=== PATIENT | male | born 1985 | race Caucasian/White ===

== ENCOUNTER 2020-07-01 15:54 | Outpatient (CLI) | payer OTHER, SELFPAY ==
[2020-07-01 16:44] LABS: SARS-CoV-2 Ag Negative (Negative)
[2020-07-02 22:51] LABS: SARS-CoV-2 RNA PCR Negative
== END 2020-07-01 15:55 | disposition home or self-care (01) ==
LOC: CHSLAB 15:58
PROVIDERS: PCP Internal Medicine; Visit Provider Internal Medicine
DX: R50.9 Fever, unspecified (principal); R10.9 Unspecified abdominal pain; Z20.822 Contact with and (suspected) exposure to COVID-19
CPT/HCPCS: 87426; C9803; U0003; U0005

== ENCOUNTER 2021-05-03 15:39 | Outpatient (CLI) | payer OTHER, SELFPAY ==
--- NOTE | ~2021-05-03 | XR_ITS ---
EXAMINATION: XR chest 2V DATE: 05/03/2021 16:29 INDICATION: COVID positive with shortness of breath and cough TECHNIQUE: PA and lateral views of the chest were obtained. COMPARISON: Chest radiograph dated 04/20/2015 FINDINGS: The lungs remain clear with no focal airspace opacities, pulmonary edema, pleural effusion or pneumot horax. The cardiomediastinal silhouette is normal. Mild thoracic spondylosis. IMPRESSION: 1. No acute cardiopulmonary disease. Reviewed, dictated and finalized at location A. 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
[2021-05-03 16:50] LABS: Basophils Absolute Auto 0.01 K/mm3 (0.00-0.10); Basophils Percent Auto 0.2 % (0.0-1.0); Hematocrit 51.1 % (40.0-54.0); Hemoglobin 16.7 g/dL (14.0-18.0); Immature Granulocyte Absolute 0.02 K/mm3 (0.00-0.00); Immature Granulocyte Percent A 0.4 % (0.0-0.0); Immature Platelet Fraction Pct 4.1 % (1.0-7.0); Lymphocytes Absolute Auto 1.13 K/mm3 (1.10-4.50); Lymphocytes Percent Auto 24.2 % (18.0-42.0); Mean Corpuscular HGB Conc 32.7 g/dL (32.0-36.0); Mean Corpuscular Hemoglobin 28.6 pg (27.0-31.0); Mean Corpuscular Volume 87.5 fL (78.0-102.0); Mean Platelet Volume 10.8 fl (8.7-11.0); Monocytes Absolute Auto 0.33 K/mm3 (0.10-0.90); Monocytes Percent Auto 7.1 % (2.0-11.0); Neutrophils Absolute Auto 3.2 K/mm3 (1.7-7.2); Neutrophils Percent Auto 68.1 % (50.0-70.0); Platelet Count Result 108 K/mm3 (150-420); Red Blood Count 5.84 M/mm3 (4.70-6.10); Red Cell Distribution Width 11.7 % (11.6-14.4); White Blood Count 4.7 K/mm3 (4.8-10.8)
[2021-05-03 17:00] LABS: Influenza Control Valid (Valid)
[2021-05-03 17:06] LABS: Alanine Aminotransferase 44 U/L (16-63); Albumin Level 3.8 g/dL (3.4-5.0); Alkaline Phosphatase 71 U/L (46-116); Anion Gap 10 mmol/L (8-16); Aspartate Amino Transferase 29 U/L (15-37); Bilirubin,Total 0.4 mg/dL (0.00-1.00); Blood Urea Nitrogen 12 mg/dL (7-18); Calcium 8.4 mg/dL (8.5-10.1); Carbon Dioxide 30 mmol/L (21-32); Chloride 103 mmol/L (98-108); Estimated Glomerular Filt Rate > 60; Glucose 94 mg/dL (70-99); Osmolality Calculated 295 mOsm/kg (285-295); Potassium 4.2 mmol/L (3.5-5.1); Sodium 143 mmol/L (136-145); Total Protein 7.4 g/dL (6.4-8.2)
[2021-05-06 13:36] LABS: Vitamin D 25 Hydroxy 29 ng/mL (30-100)
== END 2021-05-03 15:40 | disposition home or self-care (01) ==
LOC: CHSLAB 15:41
PROVIDERS: PCP Internal Medicine; Visit Provider Nurse Practitioner Family
DX: U07.1 COVID-19 (principal); R50.9 Fever, unspecified; E83.51 Hypocalcemia
CPT/HCPCS: 71046; 80053; 82306; 85025; 85055; 87804

== ENCOUNTER 2021-05-12 18:34 | Outpatient (CLI) | payer OTHER, SELFPAY ==
[2021-05-12 20:32] LABS: SARS-CoV-2 Ag Negative (Negative)
== END 2021-05-12 18:35 | disposition home or self-care (01) ==
LOC: CHSLAB 18:36
PROVIDERS: PCP Internal Medicine; Visit Provider Internal Medicine
DX: Z20.822 Contact with and (suspected) exposure to COVID-19 (principal)
CPT/HCPCS: 87426; C9803

== ENCOUNTER 2024-03-18 09:40 | Outpatient (CLI) | payer OTHER, SELFPAY ==
--- NOTE | ~2024-03-18 | XR_ITS ---
XR_CERV2-3V_CR Ordering provider: Aashish Mccoy MD History: . NECK PAIN W/RT BASE OF SKULL BUMP,STIFFNESS,ANTONIO ARM NUMBNESS . Comparison: None. FINDINGS: VERTEBRAL BODIES: Normal height and alignment. No visible fracture or subluxation. The dens is intact . DISK SPACES: Well maintained. PARASPINOUS SOFT TISSUES: No prevertebral soft tissue swelling. IMPRESSION: No acute osseous abnormality cervical spine. Reviewed, dictated and finalized at location A. FIC SUPERINTENDENT
--- NOTE | ~2024-03-18 | XR_ITS ---
XR knee LT 3V Ordering provider: Aashish Mccoy MD History: . GENERAL LT KNEE PAIN CHRONIC-WORSING . Comparison: None. FINDINGS: BONES: No acute fracture or dislocation. JOINT SPACES: Normal. SOFT TISSUES: Normal. IMPRESSION: No acute osseous abnormality left knee. Reviewed, dictated and finalized at location A. INCE ARCHIVIST
[2024-03-18 10:03] LABS: Hematocrit 41.3 % (40.0-54.0); Hemoglobin 14.7 g/dL (14.0-18.0); Mean Corpuscular HGB Conc 35.6 g/dL (32-36); Mean Corpuscular Hemoglobin 29.3 pg (27.0-31.0); Mean Corpuscular Volume 82.4 fL (78.0-102.0); Mean Platelet Volume 9.4 fl (8.7-11.0); Platelet Count Result 210 K/mm3 (150-420); Red Blood Count 5.01 M/mm3 (4.70-6.10); Red Cell Distribution Width 11.6 % (11.6-14.4); White Blood Count 5.7 K/mm3 (4.8-10.8)
[2024-03-18 10:13] LABS: Add Urine Microscopic? NO; Appearance Urine Clear (Clear); Bilirubin Urine Negative (Negative); Blood Urine Negative (Negative); Color Urine Yellow (Yellow); Glucose Urine UA Negative (Negative); Ketones Urine Negative (Negative); Leukocyte Esterase Ur Negative (Negative); Nitrate Urine Negative (Negative); Protein Urine Negative (Negative)
[2024-03-18 10:21] LABS: Band Neutrophils Percent 0 % (0-6); Eosinophils Absolute Manual 1.02 K/mm3 (0.02-0.50); Eosinophils Percent Manual 18 % (1-6); Lymphocytes Absolute Manual 1.42 K/mm3 (1.1-4.5); Lymphocytes Percent Manual 25 % (18-44); Monocytes Absolute Manual 0.39 K/mm3 (0.1-0.90); Monocytes Percent Manual 7 % (3-9); Neutrophils Absolute Manual 2.85 K/mm3 (1.3-6.7); Neutrophils Percent Manual 50 % (46-73); Platelet Estimate Adequate (Adequate); Total Cells Counted 100
[2024-03-18 11:23] LABS: Alanine Aminotransferase 38 U/L (16-63); Albumin Level 3.7 g/dL (3.4-5.0); Alkaline Phosphatase 71 U/L (46-116); Anion Gap 9 mmol/L (4-12); Aspartate Amino Transferase 27 U/L (15-37); Bilirubin,Total 1.6 mg/dL (0.00-1.00); Blood Urea Nitrogen 14 mg/dL (7-18); Calcium 9.2 mg/dL (8.5-10.1); Carbon Dioxide 29 mmol/L (21-32); Chloride 105 mmol/L (98-108); Creatine Kinase 328 U/L (39-308); Estimated Glomerular Filt Rate > 60; Glucose 95 mg/dL (70-99); Osmolality Calculated 296 mOsm/kg (285-295); Potassium 4.3 mmol/L (3.5-5.1); Sodium 143 mmol/L (136-145); Total Protein 6.6 g/dL (6.4-8.2); Uric Acid 5.8 mg/dL (3.5-7.2)
[2024-03-18 11:26] LABS: CRP < 0.5 mg/dL (0.0-0.9)
== END 2024-03-18 09:41 | disposition home or self-care (01) ==
LOC: CHSLAB 09:43
PROVIDERS: PCP Internal Medicine; Visit Provider Internal Medicine
DX: M54.2 Cervicalgia (principal); M79.603 Pain in arm, unspecified; M25.562 Pain in left knee; R20.0 Anesthesia of skin
CPT/HCPCS: 36415; 72040; 73562; 80053; 81003; 82550; 84550; 85025; 86140

== ENCOUNTER 2025-01-26 09:09 | Outpatient (CLI) | payer OTHER, SELFPAY ==
--- NOTE | ~2025-01-26 | XR_ITS ---
XR elbow LT min 3V 01/26/2025 09:42 INDICATION: Left elbow pain PROCEDURE: 3 views left elbow COMPARISON: No prior studies for comparison. FINDINGS: Fracture, dislocation or subluxation is not identified. The soft tissues appear within normal limits. No foreign bodies are identified. IMPRESSION: 1: NO ACUTE BONE OR JOINT ABNORMALITY IDENTIFIED. Reviewed, dictated and finalized at location O.
--- NOTE | ~2025-01-26 | XR_ITS ---
EXAMINATION: XR elbow RT min 3V, 01/26/2025 9:30 CDT HISTORY: PAIN IN BOTH ELBOWS COMPARISON: No comparisons available. Findings: No acute fracture or malalignment. No significant degenerative changes. Soft tissues unremarkable. Impression: No acute fracture or malalignment. Reviewed, dictated and finalized at location A. Impression: No acute fracture or malalignment.
[2025-01-26 09:35] LABS: Hematocrit 44.7 % (40.0-54.0); Hemoglobin 15.1 g/dL (14.0-18.0); Mean Corpuscular HGB Conc 33.8 g/dL (32-36); Mean Corpuscular Hemoglobin 28.7 pg (27.0-31.0); Mean Corpuscular Volume 84.8 fL (78.0-102.0); Platelet Count Result 220 K/mm3 (150-420); Red Blood Count 5.27 M/mm3 (4.70-6.10); White Blood Count 7.6 K/mm3 (4.8-10.8)
[2025-01-26 10:17] LABS: Alanine Aminotransferase 35 U/L (6-50); Albumin Level 4.8 g/dL (3.5-5.1); Alkaline Phosphatase 55 U/L (38-126); Anion Gap 7 mmol/L (4-12); Aspartate Amino Transferase 32 U/L (17-59); Bilirubin,Total 2.1 mg/dL (0.2-1.3); Blood Urea Nitrogen 14 mg/dL (9-20); CRP < 0.5 mg/dL (<1.0); Calcium 10.1 mg/dL (8.4-10.2); Carbon Dioxide 30 mmol/L (22-30); Chloride 102 mmol/L (98-107); Creatine Kinase 101 U/L (55-170); Estimated Glomerular Filt Rate > 60; Glucose 105 mg/dL (65-110); Osmolality Calculated 288 mOsm/kg (285-295); Potassium 4.5 mmol/L (3.4-5.0); Sodium 139 mmol/L (137-145); Total Protein 8.5 g/dL (6.3-8.2)
[2025-01-26 10:45] LABS: Thyroid Stimulating Hormone 1.780 uIU/mL (0.465-4.680)
[2025-01-27 11:09] LABS: Anti-CCP Ab, IgG/IgA 8 units (0-19)
== END 2025-01-26 09:10 | disposition home or self-care (01) ==
LOC: CHSLAB 09:11
PROVIDERS: PCP Internal Medicine; Visit Provider Internal Medicine
DX: M25.522 Pain in left elbow (principal); M25.521 Pain in right elbow
CPT/HCPCS: 36415; 73080; 80053; 82085; 82550; 84443; 85027; 86140; 86200